=== PATIENT | female | born 1985 | race Caucasian/White ===

== ENCOUNTER 2019-01-01 15:15 | Emergency (ER) | payer SELFPAY ==
[2019-01-01 15:16] VITALS: BMI 56.7
--- NOTE | 2019-01-01 15:18 | ED PDOC ---
Arrival/HPI - General Time Seen by Provider: 01/01/19 15:16 Historian: Patient - History of Present Illness Narrative History of Present Illness (Text): 01/01/19 15:17 33 y/o female, no significant pmh, penicillin allergy, c/o lt. hand 1st digit thumb pain x 2 days with no fall or trauma. Pt. stated that she uses the nail bel[place]ian to clean the nail, noted yellow color under the nail, no fever or chills, no difficulty bending or extended the painful thumb, no diarrhea, no dizziness, no other medical or psychological complaints. Past Medical History - Provider Review Nursing Documentation Reviewed: Yes - Infectious Disease Hx of Infectious Diseases: None - Tetanus Immunization Tetanus Immunization: Up to Date - Past Medical History Past Medical History: No Previous - Psychiatric Hx Depression: No Hx Emotional Abuse: No Hx Physical Abuse: No Hx Substance Use: No - Past Surgical History Past Surgical History: No Previous - Surgical History Hx Cholecystectomy: Yes - Anesthesia Hx Anesthesia: Yes Hx Anesthesia Reactions: No Hx Malignant Hyperthermia: No - Suicidal Assessment Feels Threatened In Home Enviroment: No Family/Social History - Physician Review Nursing Documentation Reviewed: Yes Family/Social History: Unknown Family HX Smoking Status: Heavy Smoker > 10 Cigarettes Daily Hx Alcohol Use: No Hx Substance Use: No Hx Substance Use Treatment: No Allergies/Home Meds Allergies/Adverse Reactions: Allergies Penicillins Allergy (Verified 01/01/19 15:31) RASH Review of Systems - Review of Systems Constitutional: absent: Fatigue, Fevers Eyes: absent: Vision Changes ENT: absent: Hearing Changes Respiratory: absent: SOB, Cough Cardiovascular: absent: Chest Pain Gastrointestinal: absent: Abdominal Pain, Diarrhea, Nausea, Vomiting Musculoskeletal: absent: Arthralgias, Back Pain Skin: Other (subungal abscess). absent: Rash, Pruritis, Skin Lesions Neurological: absent: Headache, Dizziness Psychiatric: absent: Anxiety, Depression, Suicidal Ideation Physical Exam Vital Signs Reviewed: Yes Temperature: Afebrile Blood Pressure: Normal Pulse: Regular Respiratory Rate: Normal Appearance: Positive for: Well-Appearing, Non-Toxic, Comfortable Pain Distress: Mild Mental Status: Positive for: Alert and Oriented X 3 - Systems Exam Head: Present: Atraumatic, Normocephalic Pupils: Present: PERRL Extroacular Muscles: Present: EOMI Conjunctiva: Present: Normal Mouth: Present: Moist Mucous Membranes Neck: Present: Normal Range of Motion Respiratory/Chest: Present: Clear to Auscultation, Good Air Exchange. No: Respiratory Distress, Accessory Muscle Use Cardiovascular: Present: Regular Rate and Rhythm, Normal S1, S2. No: Murmurs Abdomen: No: Tenderness, Distention, Peritoneal Signs Back: Present: Normal Inspection Upper Extremity: Present: Normal Inspection, Other (Lt. hand 1st digit thumb: visible distal subungal abscess noted with approx. 0.5cm diameter noted wit mild erythematous distal tip of the thumb, no streaking, negative Kanavel sign, FROM without limitation, sensation intact, motor 5/5, +radial pulse, capillary refill< 2 seconds, neurovascular intact. ). No: Cyanosis, Edema Lower Extremity: Present: Normal Inspection. No: Edema Neurological: Present: GCS=15, CN II-XII Intact, Speech Normal Skin: Present: Warm, Dry, Normal Color. No: Rashes Psychiatric: Present: Alert, Oriented x 3, Normal Insight, Normal Concentration Medical Decision Making ED Course and Treatment: 01/01/19 15:43 -Urine hcg is negative -clindamycin/motrin 01/01/19 15:48 Procedure: Incision & Drainage Performed by the emergency provider Indication: Abscess Location: lt. hand 1st digit thumb subungal abscess Preparation: The area was prepped and draped in the usual sterile fashion and was cleansed with normal saline and betadine. No used for anesthesia. Procedure: The most fluctuant portion of the abscess was incised with a #18G needle with trephination. Approximately 1 mL was obtained. there is no room for packing. A dressing was applied by the RN. Post-Procedure: On exam the abscess is notably less fluctuant. The patient tolerated the procedure well, and there were no complications. Cultured: {NO} 01/01/19 16:15 -Pt. feels complete relief after the I&D procedure, request to be discharged home, advised hand specialist follow up. Case discussed with the hand specialist account manager education Dr. Latonya Collado, he agreed with I&D and outpatient follow up with him. -Discharge home with clindamycin, motrin, wash the wound twice daily, follow up with your own pmd and hand specialist within 2 days, return to the ER for any new or worsening signs or symptoms. - PA / [employer] / Resident Statement MD/DO has reviewed & agrees with the documentation as recorded. Disposition/Present on Arrival - Present on Arrival Any Indicators Present on Arrival: No History of DVT/PE: No History of Uncontrolled Diabetes: No Urinary Catheter: No History of Decub. Ulcer: No History Surgical Site Infection Following: None - Disposition Have Diagnosis and Disposition been Completed?: Yes Diagnosis: Subungual abscess Disposition: HOME/ ROUTINE Disposition Time: 15:43 Patient Plan: Discharge Condition: GOOD Additional Instructions: -Discharge home with clindamycin, motrin, wash the wound twice daily, follow up with your own pmd and hand specialist within 2 days, return to the ER for any new or worsening signs or symptoms. Prescriptions: Clindamycin [Cleocin] 300 mg PO QID #28 cap Ibuprofen [Motrin] 600 mg PO QID PRN #30 tab PRN Reason: Other Referrals: Tobias Hanks MD [Staff Provider] - Follow up with primary Forms: WORK NOTE
[2019-01-01 15:49] VITALS: RESP 18; TEMP 97.9
[2019-01-01 16:34] VITALS: BP 114/72; PULSE 76; O2SAT 99
== END 2019-01-01 16:41 | disposition home or self-care (01) ==
LOC: ED 15:15
DX: L02.512 Cutaneous abscess of left hand (principal)